=== PATIENT | male | born 2000 | race Caucasian/White ===

== ENCOUNTER 2024-10-14 13:34 | Emergency (ER) | payer MEDICAID ==
[~2024-10-14] VITALS: Ht 170.2 cm; Wt 77.3 kg
[2024-10-14 13:39] VITALS: BP 119/87; PULSE 107; RESP 16; TEMP 98.9; O2SAT 99
[2024-10-14] MEDS: PERTUSS(ACELL),DIPH,TET/PF 0.5 ML SYRINGE [ADULT] IM. ONE (16:20)
[2024-10-14] MEDS: LIDOCAINE 1% 10 ML VIAL SQ ONE (16:20)
[2024-10-14] MEDS: BACITRACIN 0.9 GM PACKET OINTMENT TP ONE (16:22)
[2024-10-14] MEDS ORDERED: IBUP-1554 PO (17:38)
[2024-10-14] MEDS ORDERED: BACI28.410 TP (17:38)
== END 2024-10-14 17:59 | disposition home or self-care (01) ==
LOC: EMS 13:39
DX: S61.412A Laceration without foreign body of left hand, initial encounter (principal); S60.222A Contusion of left hand, initial encounter; W22.8XXA Striking against or struck by other objects, initial encounter; Y93.89 Activity, other specified; Y92.89 Other specified places as the place of occurrence of the external cause; Y99.8 Other external cause status
CPT/HCPCS: 12001; 90471; 90715; 99283; J3490